=== PATIENT | female | born 1960 | race Caucasian/White ===

== ENCOUNTER 2018-01-03 00:09 | Day surgery (SDC) | payer OTHER, BC ==
[~2018-01-03 00:09] MED LIST: HYDACE5 PO; LYNPARZA150 MG PO; MULTI VITAMIN1 EACH PO; OMEPRAZOLE MAGN20 MG PO
[2018-01-03 18:05] LABS: BASOPHILS ABSOLUTE AUTO 0.04 K/mm3 (0.00-0.23); BASOPHILS PERCENT AUTO 0 % (0-2); EOSINOPHILS ABSOLUTE AUTO 0.12 K/mm3 (0.00-0.68); EOSINOPHILS PERCENT AUTO 1 % (0-6); Hematocrit 34.5 % (33.0-51.0); Hemoglobin 11.7 g/dL (11.5-16.0); IMMATURE GRAN ABSOLUTE AUTO 0.05 K/mm3 (0.00-0.10); IMMATURE GRAN PERCENT AUTO 1 % (0-1); LYMPHOCYTES ABSOLUTE AUTO 1.12 K/mm3 (0.84-5.20); LYMPHOCYTES PERCENT AUTO 12 % (21-46); MONOCYTES ABSOLUTE AUTO 0.71 K/mm3 (0.16-1.47); MONOCYTES PERCENT AUTO 7 % (4-13); Mean Corpuscular HGB 29.5 pg (26.0-34.0); Mean Corpuscular HGB Conc 33.9 g/dL (31.5-36.5); Mean Corpuscular Volume 87 fL (80-100); Mean Platelet Volume 9.8 fL (9.1-12.4); NEUTROPHILS ABSOLUTE AUTO 7.58 K/mm3 (1.96-9.15); NEUTROPHILS PERCENT AUTO 79 % (41-73); Platelet Count 224 K/mm3 (150-400); RDW Coefficient Variation 15.4 % (11.7-14.2); RDW Standard Deviation 48.9 fL (35.1-46.3); Red Blood Cell Count 3.96 M/mm3 (3.80-5.20); White Blood Cell Count 9.62 K/mm3 (4.00-11.30)
[2018-01-03 18:45] LABS: Alanine Aminotransfer (ALT/SGP 35 U/L (12-78); Albumin, Blood 3.6 g/dL (3.4-5.0); Alk Phos 94 U/L (50-136); Anion Gap 10 mmol/L (6-16); Aspartate Aminotrans (AST/SGOT 16 U/L (12-37); Bilirubin, Total 0.7 mg/dL (0.1-1.0); Blood Urea Nitrogen 13 mg/dL (8-24); Bun/Creatinine Ratio 18.5 (12.0-20.0); CO2, Blood 25 mmol/L (21-32); Calcium, Blood 8.9 mg/dL (8.5-10.1); Chloride, Blood 105 mmol/L (98-108); Globulin, Blood 3.6 g/dL (2.2-4.0); Glomerular Filtration Rate >60 (60-); Glucose, Blood 98 mg/dL (70-99); Potassium, Blood 3.7 mmol/L (3.5-5.5); Sodium, Blood 140 mmol/L (136-145); Total Protein, Blood 7.2 g/dL (6.4-8.2)
== END 2018-01-03 17:22 | disposition home or self-care (01) ==
LOC: ATC 00:09
PROVIDERS: Obstetrics & Gynecology Gynecologic Oncology
DX: C56.9 Malignant neoplasm of unspecified ovary (principal)
CPT/HCPCS: 36416; 36591; 80053; 85025; 86304; 96523; J1642

== ENCOUNTER 2018-05-14 00:07 | Day surgery (SDC) | payer OTHER, BC ==
[2018-05-14 17:16] LABS: BASOPHILS ABSOLUTE AUTO 0.03 K/mm3 (0.00-0.23); BASOPHILS PERCENT AUTO 0 % (0-2); EOSINOPHILS ABSOLUTE AUTO 0.12 K/mm3 (0.00-0.68); EOSINOPHILS PERCENT AUTO 1 % (0-6); Hemoglobin 11.9 g/dL (11.5-16.0); IMMATURE GRAN ABSOLUTE AUTO 0.05 K/mm3 (0.00-0.10); IMMATURE GRAN PERCENT AUTO 1 % (0-1); LYMPHOCYTES ABSOLUTE AUTO 1.08 K/mm3 (0.84-5.20); LYMPHOCYTES PERCENT AUTO 11 % (21-46); MONOCYTES ABSOLUTE AUTO 0.71 K/mm3 (0.16-1.47); MONOCYTES PERCENT AUTO 7 % (4-13); Mean Corpuscular HGB 29.2 pg (26.0-34.0); Mean Corpuscular HGB Conc 33.1 g/dL (31.5-36.5); Mean Corpuscular Volume 89 fL (80-100); NEUTROPHILS ABSOLUTE AUTO 7.65 K/mm3 (1.96-9.15); NEUTROPHILS PERCENT AUTO 79 % (41-73); Platelet Count 210 K/mm3 (150-400); RDW Coefficient Variation 14.8 % (11.7-14.2); RDW Standard Deviation 47.6 fL (35.1-46.3); Red Blood Cell Count 4.07 M/mm3 (3.80-5.20); White Blood Cell Count 9.64 K/mm3 (4.00-11.30)
[2018-05-14 17:42] LABS: Alanine Aminotransfer (ALT/SGP 38 U/L (12-78); Albumin, Blood 3.5 g/dL (3.4-5.0); Albumin/Globulin Ratio 0.9 (0.8-1.8); Alk Phos 95 U/L (50-136); Anion Gap 6 mmol/L (6-16); Aspartate Aminotrans (AST/SGOT 15 U/L (12-37); Bilirubin, Total 0.6 mg/dL (0.1-1.0); Blood Urea Nitrogen 11 mg/dL (8-24); Bun/Creatinine Ratio 11.8 (12.0-20.0); CO2, Blood 27 mmol/L (21-32); Calcium, Blood 8.5 mg/dL (8.5-10.1); Chloride, Blood 106 mmol/L (98-108); Creatinine, Blood 0.93 mg/dL (0.40-1.00); Globulin, Blood 3.8 g/dL (2.2-4.0); Glomerular Filtration Rate >60 (60-); Glucose, Blood 142 mg/dL (70-99); Potassium, Blood 3.6 mmol/L (3.5-5.5); Sodium, Blood 139 mmol/L (136-145); Total Protein, Blood 7.3 g/dL (6.4-8.2)
== END 2018-05-14 16:50 | disposition home or self-care (01) ==
LOC: ATC 00:07
PROVIDERS: Obstetrics & Gynecology Gynecologic Oncology
DX: C56.9 Malignant neoplasm of unspecified ovary (principal); Z51.81 Encounter for therapeutic drug level monitoring
CPT/HCPCS: 36591; 80053; 85025; 86304; J1642

== ENCOUNTER 2018-06-27 05:22 | Day surgery (SDC) | payer OTHER, BC ==
[2018-06-27 17:17] LABS: BASOPHILS ABSOLUTE AUTO 0.04 K/mm3 (0.00-0.23); BASOPHILS PERCENT AUTO 0 % (0-2); EOSINOPHILS ABSOLUTE AUTO 0.15 K/mm3 (0.00-0.68); EOSINOPHILS PERCENT AUTO 2 % (0-6); Hematocrit 35.8 % (33.0-51.0); IMMATURE GRAN ABSOLUTE AUTO 0.05 K/mm3 (0.00-0.10); IMMATURE GRAN PERCENT AUTO 1 % (0-1); LYMPHOCYTES ABSOLUTE AUTO 1.02 K/mm3 (0.84-5.20); LYMPHOCYTES PERCENT AUTO 10 % (21-46); MONOCYTES ABSOLUTE AUTO 0.67 K/mm3 (0.16-1.47); MONOCYTES PERCENT AUTO 7 % (4-13); Mean Corpuscular HGB 29.5 pg (26.0-34.0); Mean Corpuscular HGB Conc 33.5 g/dL (31.5-36.5); Mean Corpuscular Volume 88 fL (80-100); Mean Platelet Volume 8.9 fL (9.1-12.4); NEUTROPHILS ABSOLUTE AUTO 8.29 K/mm3 (1.96-9.15); NEUTROPHILS PERCENT AUTO 81 % (41-73); Platelet Count 220 K/mm3 (150-400); RDW Standard Deviation 48.9 fL (35.1-46.3); Red Blood Cell Count 4.07 M/mm3 (3.80-5.20); White Blood Cell Count 10.22 K/mm3 (4.00-11.30)
[2018-06-27 17:35] LABS: Alanine Aminotransfer (ALT/SGP 35 U/L (12-78); Albumin, Blood 3.4 g/dL (3.4-5.0); Albumin/Globulin Ratio 0.9 (0.8-1.8); Alk Phos 95 U/L (50-136); Anion Gap 5 mmol/L (6-16); Aspartate Aminotrans (AST/SGOT 16 U/L (12-37); Bilirubin, Total 0.7 mg/dL (0.1-1.0); Blood Urea Nitrogen 12 mg/dL (8-24); Bun/Creatinine Ratio 20.7 (12.0-20.0); CO2, Blood 28 mmol/L (21-32); Calcium, Blood 8.8 mg/dL (8.5-10.1); Chloride, Blood 104 mmol/L (98-108); Creatinine, Blood 0.58 mg/dL (0.40-1.00); Globulin, Blood 3.7 g/dL (2.2-4.0); Glomerular Filtration Rate >60 (60-); Glucose, Blood 139 mg/dL (70-99); Potassium, Blood 3.6 mmol/L (3.5-5.5); Sodium, Blood 137 mmol/L (136-145); Total Protein, Blood 7.1 g/dL (6.4-8.2)
== END 2018-06-27 17:00 | disposition home or self-care (01) ==
LOC: ATC 05:22
PROVIDERS: Obstetrics & Gynecology Gynecologic Oncology
DX: C56.9 Malignant neoplasm of unspecified ovary (principal); Z51.81 Encounter for therapeutic drug level monitoring
CPT/HCPCS: 36591; 80053; 85025; 86304; J1642

== ENCOUNTER 2018-10-15 03:06 | Day surgery (SDC) | payer OTHER, BC ==
[2018-10-15 17:07] LABS: BASOPHILS ABSOLUTE AUTO 0.03 K/mm3 (0.00-0.23); BASOPHILS PERCENT AUTO 0 % (0-2); EOSINOPHILS ABSOLUTE AUTO 0.11 K/mm3 (0.00-0.68); EOSINOPHILS PERCENT AUTO 1 % (0-6); Hematocrit 34.4 % (33.0-51.0); Hemoglobin 11.5 g/dL (11.5-16.0); IMMATURE GRAN ABSOLUTE AUTO 0.04 K/mm3 (0.00-0.10); IMMATURE GRAN PERCENT AUTO 0 % (0-1); LYMPHOCYTES ABSOLUTE AUTO 0.94 K/mm3 (0.84-5.20); LYMPHOCYTES PERCENT AUTO 10 % (21-46); MONOCYTES PERCENT AUTO 7 % (4-13); Mean Corpuscular HGB 29.7 pg (26.0-34.0); Mean Corpuscular HGB Conc 33.4 g/dL (31.5-36.5); Mean Corpuscular Volume 89 fL (80-100); Mean Platelet Volume 8.8 fL (9.1-12.4); NEUTROPHILS ABSOLUTE AUTO 8.06 K/mm3 (1.96-9.15); NEUTROPHILS PERCENT AUTO 82 % (41-73); Platelet Count 208 K/mm3 (150-400); RDW Coefficient Variation 17.1 % (11.7-14.2); RDW Standard Deviation 55.3 fL (35.1-46.3); Red Blood Cell Count 3.87 M/mm3 (3.80-5.20); White Blood Cell Count 9.88 K/mm3 (4.00-11.30)
[2018-10-15 17:35] LABS: Alanine Aminotransfer (ALT/SGP 40 U/L (12-78); Albumin, Blood 3.6 g/dL (3.4-5.0); Alk Phos 95 U/L (50-136); Anion Gap 6 mmol/L (6-16); Aspartate Aminotrans (AST/SGOT 18 U/L (12-37); Bilirubin, Total 0.9 mg/dL (0.1-1.0); Blood Urea Nitrogen 12 mg/dL (8-24); Bun/Creatinine Ratio 15.9 (12.0-20.0); CO2, Blood 28 mmol/L (21-32); Calcium, Blood 8.9 mg/dL (8.5-10.1); Chloride, Blood 109 mmol/L (98-108); Creatinine, Blood 0.75 mg/dL (0.40-1.00); Globulin, Blood 3.5 g/dL (2.2-4.0); Glomerular Filtration Rate >60 (60-); Glucose, Blood 136 mg/dL (70-99); Potassium, Blood 3.6 mmol/L (3.5-5.5); Sodium, Blood 143 mmol/L (136-145); Total Protein, Blood 7.1 g/dL (6.4-8.2)
== END 2018-10-15 17:00 | disposition home or self-care (01) ==
LOC: ATC 03:06
PROVIDERS: Obstetrics & Gynecology Gynecologic Oncology
DX: C56.9 Malignant neoplasm of unspecified ovary (principal); Z79.899 Other long term (current) drug therapy; Z88.5 Allergy status to narcotic agent; Z88.2 Allergy status to sulfonamides; Z88.8 Allergy status to other drugs, medicaments and biological substances
CPT/HCPCS: 36591; 80053; 85025; 86304; J1642

== ENCOUNTER 2019-01-02 00:34 | Day surgery (SDC) | payer OTHER, BC | END 2019-01-02 11:25 | disposition home or self-care (01) | LOC: ATC 00:34 | DX: C56.9 Malignant neoplasm of unspecified ovary (principal); Z79.899 Other long term (current) drug therapy; Z88.5 Allergy status to narcotic agent; Z88.2 Allergy status to sulfonamides | CPT/HCPCS: 96523; J1642 ==

== ENCOUNTER → 2021-11-30 | Outpatient (CLI) | payer OTHER, BC ==
[2021-11-30 09:45] LABS: Protein, Urine Quantitative 162.6 mg/dL (0.0-11.9)
== END | disposition home or self-care (01) ==
LOC: LAB SHORT 06:00 → LAB 06:00
DX: C56.9 Malignant neoplasm of unspecified ovary (principal); C48.2 Malignant neoplasm of peritoneum, unspecified
CPT/HCPCS: 84156

== ENCOUNTER → 2021-12-27 | Outpatient (CLI) | payer OTHER, BC ==
[2021-12-28 11:28] LABS: Protein, Urine Quantitative 44.4 mg/dL (0.0-11.9)
== END | disposition home or self-care (01) ==
LOC: LAB 09:40 → LAB SHORT 09:40 → LAB FUT 12-12 07:30
PROVIDERS: Internal Medicine Hematology & Oncology
DX: C56.9 Malignant neoplasm of unspecified ovary (principal); C48.2 Malignant neoplasm of peritoneum, unspecified
CPT/HCPCS: 81050; 84156

== ENCOUNTER → 2022-07-24 | Outpatient (CLI) | payer OTHER, BC ==
[2022-07-24 17:12] LABS: Protein, Urine Quantitative 83.3 mg/dL (0.0-11.9)
== END ==
LOC: LAB SHORT 05:30 → LAB FUT 07-10 13:10 → EDSTATUS 07-10 13:10
PROVIDERS: Internal Medicine Hematology & Oncology
DX: C56.9 Malignant neoplasm of unspecified ovary (principal); C48.2 Malignant neoplasm of peritoneum, unspecified
CPT/HCPCS: 81050; 84156

== ENCOUNTER → 2022-11-06 | Outpatient (CLI) | payer OTHER, BC ==
[2022-11-06 16:56] LABS: Protein, Urine Quantitative 88.2 mg/dL (0.0-11.9)
== END | disposition home or self-care (01) ==
LOC: LAB SHORT 12:15
PROVIDERS: Internal Medicine Hematology & Oncology
DX: C56.9 Malignant neoplasm of unspecified ovary (principal); C48.2 Malignant neoplasm of peritoneum, unspecified
CPT/HCPCS: 81050; 84156

== ENCOUNTER → 2022-11-17 | Outpatient (CLI) | payer OTHER, BC | END | disposition home or self-care (01) | LOC: LAB 18:16 → LAB SHORT 18:16 | DX: M79.672 Pain in left foot (principal) | CPT/HCPCS: 84550 ==

== ENCOUNTER 2023-04-18 04:42 | Day surgery (SDC) | payer OTHER, BC ==
[2023-04-18 13:58] VITALS: BP 145/55
[2023-04-18 14:14] VITALS: BP 143/54
[2023-04-18] MEDS ORDERED: NORVASC5 MG PO (14:25)
[2023-04-18] MEDS ORDERED: FOLI1 PO (14:25)
[2023-04-18] MEDS ORDERED: DOXORUBICIN2 MG/1 ML IV (14:26)
[2023-04-18] MEDS ORDERED: Prinivil10 MG PO (14:27)
[2023-04-18] MEDS ORDERED: DECADRON4 M1 PO (14:27)
[2023-04-18] MEDS ORDERED: ONDA4ODT MM (14:28)
[2023-04-18] MEDS ORDERED: PROC5 PO (14:28)
[2023-04-18 15:18] VITALS: BP 143/76
[2023-04-18 15:43] VITALS: BP 145/66
[2023-04-18 16:04] VITALS: BP 151/69
[2023-04-18 17:22] VITALS: BP 154/75
== END 2023-04-18 17:29 | disposition home or self-care (01) ==
LOC: ATC 04:42
DX: C56.9 Malignant neoplasm of unspecified ovary (principal); Z88.5 Allergy status to narcotic agent; Z88.2 Allergy status to sulfonamides
CPT/HCPCS: 36415; 36430; 86850; 86900; 86901; 86920; J1642; J7050; P9016

== ENCOUNTER → 2023-05-16 | Outpatient (CLI) | payer OTHER, BC ==
[~2023-05-16] MED LIST changes: +DECADRON4 M1 PO; +DOXORUBICIN2 MG/1 ML IV; +FOLI1 PO; +NORVASC5 MG PO; +ONDA4ODT MM; +PROC5 PO; +Prinivil10 MG PO
[2023-05-16 19:06] LABS: BASOPHILS ABSOLUTE AUTO 0.02 K/mm3 (0.00-0.23); BASOPHILS PERCENT AUTO 0 % (0-2); EOSINOPHILS ABSOLUTE AUTO 0.01 K/mm3 (0.00-0.68); EOSINOPHILS PERCENT AUTO 0 % (0-6); Hematocrit 27.1 % (33.0-51.0); Hemoglobin 8.9 g/dL (11.5-16.0); IMMATURE GRAN ABSOLUTE AUTO 0.16 K/mm3 (0.00-0.10); IMMATURE GRAN PERCENT AUTO 2 % (0-1); LYMPHOCYTES PERCENT AUTO 6 % (21-46); MONOCYTES ABSOLUTE AUTO 1.51 K/mm3 (0.16-1.47); MONOCYTES PERCENT AUTO 14 % (4-13); Mean Corpuscular HGB 29.9 pg (26.0-34.0); Mean Corpuscular HGB Conc 32.8 g/dL (31.5-36.5); Mean Corpuscular Volume 91 fL (80-100); Mean Platelet Volume 9.1 fL (9.1-12.4); NEUTROPHILS ABSOLUTE AUTO 8.54 K/mm3 (1.96-9.15); NEUTROPHILS PERCENT AUTO 79 % (41-73); Platelet Count 303 K/mm3 (150-400); RDW Coefficient Variation 16.9 % (11.7-14.2); RDW Standard Deviation 53.8 fL (35.1-46.3); Red Blood Cell Count 2.98 M/mm3 (3.80-5.20); White Blood Cell Count 10.84 K/mm3 (4.00-11.30)
== END ==
LOC: LAB SHORT 18:58 → LAB 18:58
PROVIDERS: Physician Assistant Medical
DX: R10.84 Generalized abdominal pain (principal)
CPT/HCPCS: 85025

== ENCOUNTER 2023-05-22 17:21 | Emergency (ER) | payer OTHER, BC ==
[~2023-05-22] VITALS: Ht 154.9 cm; Wt 86.2 kg
[2023-05-22 18:40] LABS: BASOPHILS ABSOLUTE AUTO 0.05 K/mm3 (0.00-0.23); BASOPHILS PERCENT AUTO 0 % (0-2); EOSINOPHILS ABSOLUTE AUTO 0.01 K/mm3 (0.00-0.68); EOSINOPHILS PERCENT AUTO 0 % (0-6); Hematocrit 24.8 % (33.0-51.0); Hemoglobin 8.3 g/dL (11.5-16.0); IMMATURE GRAN ABSOLUTE AUTO 0.33 K/mm3 (0.00-0.10); IMMATURE GRAN PERCENT AUTO 3 % (0-1); LYMPHOCYTES ABSOLUTE AUTO 0.71 K/mm3 (0.84-5.20); LYMPHOCYTES PERCENT AUTO 6 % (21-46); MONOCYTES ABSOLUTE AUTO 1.44 K/mm3 (0.16-1.47); MONOCYTES PERCENT AUTO 12 % (4-13); Mean Corpuscular HGB 29.9 pg (26.0-34.0); Mean Corpuscular HGB Conc 33.5 g/dL (31.5-36.5); Mean Corpuscular Volume 89 fL (80-100); NEUTROPHILS PERCENT AUTO 80 % (41-73); Platelet Count 235 K/mm3 (150-400); RDW Coefficient Variation 17.2 % (11.7-14.2); RDW Standard Deviation 52.9 fL (35.1-46.3); Red Blood Cell Count 2.78 M/mm3 (3.80-5.20); White Blood Cell Count 12.44 K/mm3 (4.00-11.30)
[2023-05-22 19:08] LABS: Albumin, Blood 1.8 g/dL (3.4-5.0); Albumin/Globulin Ratio 0.3 (0.8-1.8); Bilirubin, Total 0.8 mg/dL (0.1-1.0); Bun/Creatinine Ratio 13.2 (12.0-20.0); Creatinine, Blood 0.84 mg/dL (0.40-1.00); Potassium, Blood 2.8 mmol/L (3.5-5.5); Total Protein, Blood 7.8 g/dL (6.4-8.2)
[2023-05-22 20:44] LABS: Source, Urine Clean Catch
[2023-05-22 20:48] LABS: Appearance, Urine Hazy (Clear); Blood, Urine 5+ (Neg); Color, Urine Amber (P-Yellow); Glucose Qualitative, Urine Neg (Neg); Ketones, Urine 3+ (Neg); Leukocyte Esterase, Urine 2+ (Neg); Nitrite, Urine Neg (Neg); Protein, Urine 4+ (Neg); Urobilinogen, Urine 2+ (Normal)
[2023-05-22 20:58] LABS: Bilirubin, Urine 1+ (Neg)
[2023-05-22 21:00] LABS: Squamous Epithelial Cells Few /hpf (Few); White Blood Cells, Urine 25-50 /hpf (0-5)
[2023-05-22 21:01] LABS: Bacteria Many /hpf; Granular Casts 0-2 /lpf (0); Hyaline Casts 0-2 /lpf (0-2)
[2023-05-22 22:27] LABS: Magnesium, Blood 1.6 mg/dL (1.6-2.4)
[2023-05-23] MEDS ORDERED: PROM25 PO (00:13)
[2023-05-23 00:20] VITALS: BP 152/73
[2023-05-23] MEDS ORDERED: CEPHALEXIN125 MG/5 M PO (00:45)
[2023-05-23] MEDS ORDERED: Keflex500 MG PO (00:46)
== END 2023-05-23 00:44 | disposition home or self-care (01) ==
LOC: ER 17:21
PROVIDERS: Emergency Medicine
DX: E86.0 Dehydration (principal); E87.6 Hypokalemia; N39.0 Urinary tract infection, site not specified; I80.02 Phlebitis and thrombophlebitis of superficial vessels of left lower extremity; C56.9 Malignant neoplasm of unspecified ovary; R11.2 Nausea with vomiting, unspecified; Z88.2 Allergy status to sulfonamides; Z88.5 Allergy status to narcotic agent; Z79.899 Other long term (current) drug therapy; Z79.52 Long term (current) use of systemic steroids
CPT/HCPCS: 80053; 81001; 83735; 85025; 87077; 87086; 87186; 93971; 96365; 96375; 96376; 99284-25; A9270; J1642; J2405; J3480; J7030

== ENCOUNTER 2023-06-03 14:59 | Inpatient (IN) | payer OTHER, BC ==
[~2023-06-03] VITALS: Ht 157.5 cm; Wt 82.9 kg
[~2023-06-03 14:59] MED LIST changes: +CEPHALEXIN125 MG/5 M PO; +COMPAZINE10 MG PO; +Keflex500 MG PO; -MULTI VITAMIN1 EACH PO; +MULVITA PO; -ONDA4ODT MM; +ONDA8 PO; -PROC5 PO; +PROM25 PO
[2023-06-03] MEDS ORDERED: Ondansetron HCl 2 MG / ML 2ML Vial IV ONE (15:45)
[2023-06-03 16:04] LABS: BASOPHILS ABSOLUTE AUTO 0.05 K/mm3 (0.00-0.23); BASOPHILS PERCENT AUTO 0 % (0-2); EOSINOPHILS ABSOLUTE AUTO 0.03 K/mm3 (0.00-0.68); EOSINOPHILS PERCENT AUTO 0 % (0-6); Hematocrit 20.6 % (33.0-51.0); Hemoglobin 6.8 g/dL (11.5-16.0); IMMATURE GRAN ABSOLUTE AUTO 0.12 K/mm3 (0.00-0.10); IMMATURE GRAN PERCENT AUTO 1 % (0-1); LYMPHOCYTES ABSOLUTE AUTO 1.13 K/mm3 (0.84-5.20); LYMPHOCYTES PERCENT AUTO 6 % (21-46); MONOCYTES ABSOLUTE AUTO 1.36 K/mm3 (0.16-1.47); MONOCYTES PERCENT AUTO 8 % (4-13); Mean Corpuscular HGB 29.6 pg (26.0-34.0); Mean Corpuscular Volume 90 fL (80-100); Mean Platelet Volume 9.3 fL (9.1-12.4); NEUTROPHILS ABSOLUTE AUTO 14.86 K/mm3 (1.96-9.15); NEUTROPHILS PERCENT AUTO 85 % (41-73); Platelet Count 287 K/mm3 (150-400); RDW Coefficient Variation 19.1 % (11.7-14.2); RDW Standard Deviation 59.5 fL (35.1-46.3); White Blood Cell Count 17.55 K/mm3 (4.00-11.30)
[2023-06-03 16:32] LABS: Magnesium, Blood 1.3 mg/dL (1.6-2.4)
[2023-06-03 16:34] LABS: Albumin, Blood 1.8 g/dL (3.4-5.0); Albumin/Globulin Ratio 0.3 (0.8-1.8); Bilirubin, Total 1.5 mg/dL (0.1-1.0); Bun/Creatinine Ratio 15.7 (12.0-20.0); Calcium, Blood 8.7 mg/dL (8.5-10.1); Creatinine, Blood 0.76 mg/dL (0.40-1.00); Globulin, Blood 6.2 g/dL (2.2-4.0); Potassium, Blood 2.3 mmol/L (3.5-5.5)
[2023-06-03] MEDS ORDERED: Potassium Chloride 40 MEQ in NS 250 ML IV ONE (16:40)
[2023-06-03] MEDS ORDERED: NS 1,000 ML IV SCH ×2 (16:40→20:35)
[2023-06-03 18:33] LABS: Source, Urine Clean Catch
[2023-06-03 18:36] LABS: Appearance, Urine Cloudy (Clear); Blood, Urine 5+ (Neg); Color, Urine Amber (P-Yellow); Glucose Qualitative, Urine Neg (Neg); Ketones, Urine 3+ (Neg); Leukocyte Esterase, Urine 3+ (Neg); Nitrite, Urine Neg (Neg); Protein, Urine 3+ (Neg); Urobilinogen, Urine 2+ (Normal)
[2023-06-03 19:07] LABS: Bilirubin, Urine 2+ (Neg)
[2023-06-03 19:11] LABS: Squamous Epithelial Cells Many /hpf (Few); White Blood Cells, Urine 50-100 /hpf (0-5)
[2023-06-03 19:12] LABS: Amorphous Light (0-Heavy); Bacteria Many /hpf; Granular Casts 0-2 /lpf (0); Mucus Light (0-Heavy); Renal Epithelial Rare /hpf (0-Rare); Transitional Epithelial Cells Few /hpf (0-Rare); WBC Cast 0-2 /lpf (0)
[2023-06-03 20:13] LABS: Source, Urine Straight Cath
[2023-06-03] MEDS ORDERED: CefTRIAXone Sodium 1,000 MG in NS 50 ML IV ONE (20:15)
[2023-06-03 20:16] LABS: Appearance, Urine Hazy (Clear); Blood, Urine 5+ (Neg); Color, Urine Amber (P-Yellow); Glucose Qualitative, Urine Neg (Neg); Ketones, Urine 3+ (Neg); Leukocyte Esterase, Urine 2+ (Neg); Nitrite, Urine Neg (Neg); Protein, Urine 3+ (Neg); Specific Gravity, Urine 1.015 (1.003-1.022); Urobilinogen, Urine 2+ (Normal)
[2023-06-03 20:19] LABS: Adenovirus Not Detected (NOT DETECT); Bordetella pertussis Not Detected (NOT DETECT); Chlamydophila pneumoniae Not Detected (NOT DETECT); Coronavirus 229E Not Detected (NOT DETECT); Coronavirus HKU1 Not Detected (NOT DETECT); Coronavirus NL63 Not Detected (NOT DETECT); Coronavirus OC43 Not Detected (NOT DETECT); Human Metapneumovirus Not Detected (NOT DETECT); Human Rhinovirus/Enterovirus Not Detected (NOT DETECT); Influenza A/2009-H1 Not Detected (NOT DETECT); Influenza A/H1 Not Detected (NOT DETECT); Influenza A/H3 Not Detected (NOT DETECT); Influenza B Not Detected (NOT DETECT); Mycoplasma pneumoniae Not Detected (NOT DETECT); Parainfluenza Virus 1 Not Detected (NOT DETECT); Parainfluenza Virus 2 Not Detected (NOT DETECT); Parainfluenza Virus 3 Not Detected (NOT DETECT); Parainfluenza Virus 4 Not Detected (NOT DETECT); Respiratory Syncytial Virus Not Detected (NOT DETECT); SARS-Cov-2 (COVID-19), BioFire Not Detected (NOT DETECT)
[2023-06-03 20:22] LABS: Bilirubin, Urine 1+ (Neg)
[2023-06-03 20:31] LABS: Bacteria Mod /hpf; Granular Casts 0-2 /lpf (0); Squamous Epithelial Cells Rare /hpf (Few)
[2023-06-03] MEDS ORDERED: Ondansetron HCl 2 MG / ML 2ML Vial IV PRN (21:40)
[2023-06-03] MEDS ORDERED: Acetaminophen 325 MG TABLET PO PRN (21:40)
[2023-06-03] MEDS ORDERED: FLU VACC QS2023-24(6MOS UP)/PF 60 MCG/0.5 ML SYRINGE IM ONE (21:40)
[2023-06-03 23:29] VITALS: BP 132/64
[2023-06-04] VITALS (8 sets, daily range): BP systolic 138–150; BP diastolic 62–76
[2023-06-04] MEDS ORDERED: NS 500 ML IV SCH (00:10)
--- NOTE | 2023-06-04 04:30 | NUR ---
SHIFT SUMMARY; PATIENT ARRIVED TO MED FLOOR AFTER MIDNIGHT. SHE IS AO X 4. DENIES ANY PAIN OR DISCOMFORT OTHER THAN NAUSESA. NO EMESIS NOTED ON ARRIVAL OR SINCE COMING TO MEDICAL FLOOR. ONE UNIT PRBC'S IS TRANSFUSED NO REACTION IS NOTED. VITAL SIGNS REMAIN STABLE. PER REPORT PATIENT HAS BEEN RECEIVING CHEMO OVER THE PAST FEW WEEKS. PATIENT STATES SHE HAS BEEN RECEIVING TREATMENT FOR 8 YEARS AND RECENTLY STARTED BACK UP AGAIN. SHE HAS A MEDIPORT IN PLACE THAT IS NOT ACCESSED TO MAINTAIN THE INTEGRITY OF IT FOR HER CANCER TREATMENTS. PATIENT SAYS SHE IS FEELING BETTER AND NO NAUSEA MEDICINE IS NEEDED DURING THE REST OF THE NOC SHIFT. WILL REMAIN AVAILABLE FOR THIS PATIENT FOR ANY WANTS OR NEEDS THAT COME UP PRIOR TO SHIFT CHANGE AND REPORT TO DAY SHIFT RN.
[2023-06-04 05:48] LABS: BASOPHILS ABSOLUTE AUTO 0.04 K/mm3 (0.00-0.23); BASOPHILS PERCENT AUTO 0 % (0-2); EOSINOPHILS ABSOLUTE AUTO 0.06 K/mm3 (0.00-0.68); EOSINOPHILS PERCENT AUTO 1 % (0-6); Hematocrit 22.1 % (33.0-51.0); Hemoglobin 7.6 g/dL (11.5-16.0); IMMATURE GRAN ABSOLUTE AUTO 0.09 K/mm3 (0.00-0.10); IMMATURE GRAN PERCENT AUTO 1 % (0-1); LYMPHOCYTES ABSOLUTE AUTO 0.73 K/mm3 (0.84-5.20); LYMPHOCYTES PERCENT AUTO 7 % (21-46); MONOCYTES PERCENT AUTO 10 % (4-13); Mean Corpuscular HGB 30.4 pg (26.0-34.0); Mean Corpuscular HGB Conc 34.4 g/dL (31.5-36.5); Mean Corpuscular Volume 88 fL (80-100); Mean Platelet Volume 9.3 fL (9.1-12.4); NEUTROPHILS ABSOLUTE AUTO 9.25 K/mm3 (1.96-9.15); NEUTROPHILS PERCENT AUTO 82 % (41-73); Platelet Count 153 K/mm3 (150-400); RDW Coefficient Variation 17.5 % (11.7-14.2); RDW Standard Deviation 53.6 fL (35.1-46.3); White Blood Cell Count 11.27 K/mm3 (4.00-11.30)
[2023-06-04 06:15] LABS: Albumin, Blood 1.6 g/dL (3.4-5.0); Albumin/Globulin Ratio 0.3 (0.8-1.8); Bilirubin, Total 1.2 mg/dL (0.1-1.0); Bun/Creatinine Ratio 14.2 (12.0-20.0); Calcium, Blood 8.1 mg/dL (8.5-10.1); Creatinine, Blood 0.77 mg/dL (0.40-1.00); Globulin, Blood 5.3 g/dL (2.2-4.0); Potassium, Blood 2.5 mmol/L (3.5-5.5); Total Protein, Blood 6.9 g/dL (6.4-8.2)
[2023-06-04] MEDS ORDERED: Mag Sulfate 1 GM/D5% 100ML 100 ML IV STA (07:28)
[2023-06-04] MEDS ORDERED: Potassium Chl 20MEQ/Water100ML 100 ML IV SCH (07:30)
[2023-06-04] MEDS ORDERED: Prochlorperazine Edisylate 10 mg Vial IV PRN (08:10)
[2023-06-04] MEDS ORDERED: Pantoprazole Sodium 40 MG Tab PO SCH (09:50)
[2023-06-04] MEDS ORDERED: CefTRIAXone Sodium 1,000 MG in NS 50 ML IV SCH (12:00)
[2023-06-04] MEDS ORDERED: Enoxaparin 100 MG/ML 1ML SYR SC SCH (13:00)
[2023-06-04] MEDS ORDERED: Enoxaparin 120 MG/0.8 ML SYR SC SCH (13:00)
--- NOTE | 2023-06-04 16:51 | NUR ---
Spiritual care visit conducted. Patient is lying in bed and alert. Her spouse, Jewel is bedside. They tell me about the 8 yr soliz the patient has had with cancer and the many ups and downs they ave faced. They talk about the love they have for each other and the strength they find in each other. They also speak of their mosque ([employer] [facility]) where they receive much support and inspiration due to the couples strong Chriatian beliefs. They share about their family their solid connections. Patient shares about the deep exhaustion and times of mental darkness in the physically challenging days. Patient has exceptional coping skills and resources that assist in those days. I provide therapeutic listening, recitation of scripture, gentle outreach counselor and prayer. Patient and Jewel responded well and stated that they felt better from the spiritual care visit and that their sandee was encourged.
--- NOTE | 2023-06-04 17:31 | NUR ---
SUMMARY PT SITTING UP IN BED VISITING WITH FRIENDS AND FAMILY, PT HAS BEEN PLEASANT AND COOPERATIVE WITH CARE T/O THE DAY, UP WITH MIN ASSIST, PT HAD AN EPISODE OF NAUSEA AND RETCHING FIRST THING IN THE MORNING, MED PER EMAR WITH GOOD RESULTS, PT DENIES ANY PAIN OR SOB, IV WENT BAD, DIFFICULT IV STICK, OBTAINED ORDERS TO ACCESS MEDIPORT, PT JOJO WELL, VSS, WILL CONT TO MONITOR
[2023-06-05 02:59] VITALS: BP 141/68
--- NOTE | 2023-06-05 05:00 | NUR ---
SHIFT SUMMARY ADMITTED FOR NAUSEA AND VOMITING. FULL CODE. FOUND TO HAVE A UTI. SHE WAS HYPOKALEMIC. 1 U PRBC'S GIVEN. IV ANTIB RX ARE SCHEDULED. SHE HAS A HX OF OVARIAN CANCER, LAST CHEMO 03/2023. ON RA. HER MEDIPORT IS ACCESSED. SHE IS INDEPENDENT IN ROOM. SHE IS CONTINENT. ON REGULAR DIET. FOUND TO HAVE A CLOT IN LLE.
[2023-06-05 06:04] LABS: BASOPHILS ABSOLUTE AUTO 0.03 K/mm3 (0.00-0.23); BASOPHILS PERCENT AUTO 0 % (0-2); EOSINOPHILS ABSOLUTE AUTO 0.04 K/mm3 (0.00-0.68); EOSINOPHILS PERCENT AUTO 0 % (0-6); Hematocrit 22.7 % (33.0-51.0); Hemoglobin 7.7 g/dL (11.5-16.0); IMMATURE GRAN ABSOLUTE AUTO 0.07 K/mm3 (0.00-0.10); IMMATURE GRAN PERCENT AUTO 1 % (0-1); LYMPHOCYTES ABSOLUTE AUTO 0.64 K/mm3 (0.84-5.20); LYMPHOCYTES PERCENT AUTO 7 % (21-46); MONOCYTES ABSOLUTE AUTO 0.91 K/mm3 (0.16-1.47); MONOCYTES PERCENT AUTO 9 % (4-13); Mean Corpuscular HGB 29.7 pg (26.0-34.0); Mean Corpuscular HGB Conc 33.9 g/dL (31.5-36.5); Mean Corpuscular Volume 88 fL (80-100); Mean Platelet Volume 8.9 fL (9.1-12.4); NEUTROPHILS ABSOLUTE AUTO 8.07 K/mm3 (1.96-9.15); NEUTROPHILS PERCENT AUTO 83 % (41-73); Platelet Count 124 K/mm3 (150-400); RDW Coefficient Variation 18.1 % (11.7-14.2); Red Blood Cell Count 2.59 M/mm3 (3.80-5.20); White Blood Cell Count 9.76 K/mm3 (4.00-11.30)
[2023-06-05 06:19] LABS: Creatinine, Blood 0.79 mg/dL (0.40-1.00); Potassium, Blood 2.9 mmol/L (3.5-5.5)
[2023-06-05] MEDS ORDERED: Mag Sulfate 1 GM/D5% 100ML 100 ML IV STA (07:33)
[2023-06-05 07:35] VITALS: BP 167/82
[2023-06-05] MEDS ORDERED: Potassium Chl 20MEQ/Water100ML 100 ML IV SCH (07:35)
[2023-06-05] MEDS ORDERED: NS 50 ML IV ONE (07:35)
[2023-06-05] MEDS ORDERED: Polyethylene Glycol 3350 17 gm PO PRN (13:00)
[2023-06-05] MEDS ORDERED: Sennosides 8.6 MG Tab PO SCH (13:00)
[2023-06-05 15:28] VITALS: BP 144/73
--- NOTE | 2023-06-05 17:20 | NUR ---
SHIFT SUMMARY PT RESTING QUIETLY AT START OF SHIFT. WOKE EASILY FOR SHIFT REPORT. PT ADMITTED FOR N/V RELATED TO RECENT CHEMO TX. PT IMPROVING EACH DAY. MEDICATED X1 FOR MILD NAUSEA BEFORE BREAKFAST. PT REPORTING IT EFFECTIVE WITH NO FURTHER COMPLAINTS. PT UP INDEPENDENTLY IN AND TO B[facility]. PT REPORTED HX OF CONSTIPATION AND NO RECENT BM EARLIER TODAY. DR VERAS NOTIFIED FOR BOWEL CARE; OBTAINED AND GIVEN PER EMAR. PT UP THIS AFTERNOON TO [facility] FOR BM. MAG RIDER AND IV K+ GIVEN PER EMAR TODAY. POSSIBLE D/C TO HOME TOMORROW. PT'S TO THRU OUT THE DAY. LLE VERY SWOLLEN; D/T L ANKLE CLOT, PER SHIFT REPORT. PT RECEIVING LOVENOX. VERY PLEASANT AND CO-OP WITH CARE. DENIED FURTHER NEEDS AT THIS TIME. CALL LT IN REACH.
[2023-06-05] MEDS ORDERED: PANTOPRAZOLE SO40 M2 PO (19:44)
[2023-06-05 19:52] VITALS: BP 145/64
[2023-06-05] MEDS ORDERED: Docusate Sodium 100 MG Cap PO SCH (21:00)
[2023-06-06 04:00] VITALS: BP 142/77
--- NOTE | 2023-06-06 04:59 | NUR ---
SHIFT SUMMARY ADMITTED FOR N/V. FULL CODE. PLAN IS FOR DC HOME. HX: OVARIAN CANCER. LAST CHEMO IN 03/2023. UTI, HYPOKALEMIA, AND ANEMIA AT ADMISSION 1 UNIT OF PRBC'S GIVEN. INDEPENDENT. ON RA. CLOT IN LLE. MEDIPORT IS ACCESSED. NS INFUSING TKO. MX: LABS. NAUSEA/1 EMESIS THIS SHIFT. MEDICATED FOR NAUSEA.
[2023-06-06 06:35] LABS: Bun/Creatinine Ratio 13.9 (12.0-20.0); Calcium, Blood 8.5 mg/dL (8.5-10.1); Creatinine, Blood 0.72 mg/dL (0.40-1.00); Potassium, Blood 3.3 mmol/L (3.5-5.5)
[2023-06-06 07:30] LABS: BASOPHILS ABSOLUTE AUTO 0.02 K/mm3 (0.00-0.23); BASOPHILS PERCENT AUTO 0 % (0-2); EOSINOPHILS ABSOLUTE AUTO 0.03 K/mm3 (0.00-0.68); EOSINOPHILS PERCENT AUTO 0 % (0-6); Hematocrit 19.3 % (33.0-51.0); Hemoglobin 6.4 g/dL (11.5-16.0); IMMATURE GRAN ABSOLUTE AUTO 0.07 K/mm3 (0.00-0.10); IMMATURE GRAN PERCENT AUTO 1 % (0-1); LYMPHOCYTES ABSOLUTE AUTO 0.64 K/mm3 (0.84-5.20); LYMPHOCYTES PERCENT AUTO 7 % (21-46); MONOCYTES ABSOLUTE AUTO 0.98 K/mm3 (0.16-1.47); MONOCYTES PERCENT AUTO 10 % (4-13); Mean Corpuscular HGB 29.5 pg (26.0-34.0); Mean Corpuscular HGB Conc 33.2 g/dL (31.5-36.5); Mean Corpuscular Volume 89 fL (80-100); Mean Platelet Volume 9.5 fL (9.1-12.4); NEUTROPHILS ABSOLUTE AUTO 8.13 K/mm3 (1.96-9.15); NEUTROPHILS PERCENT AUTO 82 % (41-73); Platelet Count 138 K/mm3 (150-400); RDW Coefficient Variation 18.2 % (11.7-14.2); RDW Standard Deviation 57.1 fL (35.1-46.3); Red Blood Cell Count 2.17 M/mm3 (3.80-5.20); White Blood Cell Count 9.87 K/mm3 (4.00-11.30)
[2023-06-06 07:36] VITALS: BP 146/80
[2023-06-06] MEDS ORDERED: Potassium Chl 20MEQ/Water100ML 100 ML IV SCH (08:50)
[2023-06-06] MEDS ORDERED: Potassium Chloride 20 MEQ TabCR PO ONE (09:00)
[2023-06-06 11:39] VITALS: BP 150/74
[2023-06-06 16:17] VITALS: BP 140/82
--- NOTE | 2023-06-06 18:53 | NUR ---
SHIFT SUMMARY PT AWAKE, RESTING QUIETLY DURING SHIFT REPORT. NO C/O AT THAT TIME. MEDICATED FOR NAUSEA DURING THE NIGHT X1. DENIED NAUSEA TO PRESENT TODAY. PT HAD ONE EPISODE OF VOMITING;100cc AT DINNER D/T COUGHING, BUT NOT FROM NAUSEA. PT UP AMBULATING IN AND OUT TO HALLS TODAY. PT RECEIVED 1 UNIT PRBC'S AND IV KCL AGAIN ALL DAY. IV K+ DELAYED D/T BLOOD TRANSFUSION. PT'S TO EARLY AND OFF AND ON THRU OUT THE DAY. NO C/O PAIN. DENIED FURTHER NEEDS AT THIS TIME. CALL LT IN REACH. POSSIBLE D/C TOMORROW. PT HAS CONTINUED TO IMPROVE, FEELING A LITTLE BETTER LAST 2 DAYS.
[2023-06-06 20:13] VITALS: BP 153/81
[2023-06-06] MEDS ORDERED: Lactobacil 2-S.Thermo-Bifido 1 1 Cap PO SCH (21:00)
--- NOTE | 2023-06-07 03:58 | NUR ---
AGRICULTURAL EXTENSION EDUCATOR SUMMARY PULSE RAPID AND BP SLIGHTLY ELEVATED, OTHERWISE VSS. ALERT AND ORINETED X 4. WAS VISITING AT SHIFT COMMENCE, BUT LEFT AT HS. HOB ELEVATED FOR COMFORT. MEDIPORT INFUSING WITH NS AT TKO FOR ANTIBIOTICS - SEE MAR FOR DETAILS. UP WTH ASSIST. USES CALL LIGHT APPROPRIATELY. HAS BEEN RESTING QUIETLY WITH FEW INTERRUPTIONS. PAIN MEDS ADMIN NEEDED - SEE MAR FOR DETAILS. CALL LIGHT IN REACH. RAILS UP X 2 FOR SAFETY. WILL CONTINUE TO MONITOR
[2023-06-07 04:56] VITALS: BP 145/82
[2023-06-07 07:20] VITALS: BP 138/75
[2023-06-07 07:22] LABS: BASOPHILS ABSOLUTE AUTO 0.02 K/mm3 (0.00-0.23); BASOPHILS PERCENT AUTO 0 % (0-2); EOSINOPHILS ABSOLUTE AUTO 0.08 K/mm3 (0.00-0.68); EOSINOPHILS PERCENT AUTO 1 % (0-6); Hematocrit 23.2 % (33.0-51.0); Hemoglobin 7.6 g/dL (11.5-16.0); IMMATURE GRAN ABSOLUTE AUTO 0.08 K/mm3 (0.00-0.10); IMMATURE GRAN PERCENT AUTO 1 % (0-1); LYMPHOCYTES ABSOLUTE AUTO 0.67 K/mm3 (0.84-5.20); LYMPHOCYTES PERCENT AUTO 6 % (21-46); MONOCYTES ABSOLUTE AUTO 1.09 K/mm3 (0.16-1.47); MONOCYTES PERCENT AUTO 10 % (4-13); Mean Corpuscular HGB 28.9 pg (26.0-34.0); Mean Corpuscular HGB Conc 32.8 g/dL (31.5-36.5); Mean Corpuscular Volume 88 fL (80-100); NEUTROPHILS ABSOLUTE AUTO 8.71 K/mm3 (1.96-9.15); NEUTROPHILS PERCENT AUTO 82 % (41-73); Platelet Count 126 K/mm3 (150-400); RDW Coefficient Variation 18.6 % (11.7-14.2); RDW Standard Deviation 57.1 fL (35.1-46.3); Red Blood Cell Count 2.63 M/mm3 (3.80-5.20); White Blood Cell Count 10.65 K/mm3 (4.00-11.30)
[2023-06-07 07:48] LABS: Anion Gap Unable to Calculate mmol/L (6-16); Blood Urea Nitrogen 10 mg/dL (8-24); Bun/Creatinine Ratio 12.7 (12.0-20.0); CO2, Blood 33 mmol/L (21-32); Calcium, Blood 8.7 mg/dL (8.5-10.1); Chloride, Blood 107 mmol/L (98-108); Creatinine, Blood 0.79 mg/dL (0.40-1.00); Glomerular Filtration Rate 83 (60-); Glucose, Blood 118 mg/dL (70-99); Sodium, Blood 139 mmol/L (136-145)
--- NOTE | 2023-06-07 10:36 | NUR ---
Patient Ct contrast reaction. Nurse called by military administrative technician that patient had a reaction from constrast via [employer], porcelain technician noted new hives around the neck. Provider has been called and notified. Antihistamine requested to provider during call with provider.
[2023-06-07] MEDS ORDERED: DiphenhydrAMINE HCl 50 MG/ML 1ML Vial IV PRN (11:00)
[2023-06-07] MEDS ORDERED: Famotidine 10 MG/ML 2ML Vial IV SCH (11:00)
[2023-06-07] MEDS ORDERED: DiphenhydrAMINE HCl 50 MG/ML 1ML Vial IV ONE (11:00)
[2023-06-07] MEDS ORDERED: MethylPREDNISolone Sod Succ 125 MG Vial IV SCH (11:00)
--- NOTE | 2023-06-07 13:49 | NUR ---
Patient is sitting up in bed and alert. Pt's spouse, Jewel is bedside. We spend much time exploring the emotional, mental, spiritual and physical aspects of a senior care soliz with cancer. They share about the practices and people that help them continue to remain positive and able to still really laugh (having 3 deutchens helps them laugh). They share about their sandee and the stabilizing aeffect it on them, They again mention the wonderful support of [facility] that helps them feel loved and cared for in the dark days. I provide therapeutic listening, gentle diet counselor and prayer. They voice that were encourged and uplifted from the spiritual care visit.
[2023-06-07] MEDS ORDERED: MIRALAX17 GM PO (14:32)
[2023-06-07] MEDS ORDERED: SENNA LAXATIVE8.6 MG PO (14:33)
[2023-06-07] MEDS ORDERED: SPIR25 PO (14:35)
== END 2023-06-07 15:51 | disposition home or self-care (01) | DRG 872 ==
LOC: ER 14:59 → MEDS 21:37 → ENPENDDIS 06-07 14:04 → MEDS 06-07 15:51
PROVIDERS: Family Medicine; Internal Medicine; Physician Assistant; Student in an Organized Health Care Education/Training Program; ADMIT Student in an Organized Health Care Education/Training Program
PROC: 3E03329 Introduction of Other Anti-infective into Peripheral Vein, Percutaneous Approach (ICD-10-PCS; 2023-06-03)
PROC: 30233N1 Transfusion of Nonautologous Red Blood Cells into Peripheral Vein, Percutaneous Approach (ICD-10-PCS; principal; 2023-06-06)
DX: A41.51 Sepsis due to Escherichia coli [E. coli] (principal); I82.812 Embolism and thrombosis of superficial veins of left lower extremity; N39.0 Urinary tract infection, site not specified; R18.0 Malignant ascites; J91.0 Malignant pleural effusion; C56.2 Malignant neoplasm of left ovary; R11.2 Nausea with vomiting, unspecified; Z28.21 Immunization not carried out because of patient refusal; Z11.52 Encounter for screening for COVID-19; T45.1X5A Adverse effect of antineoplastic and immunosuppressive drugs, initial encounter; D63.0 Anemia in neoplastic disease; E87.6 Hypokalemia; E83.42 Hypomagnesemia; Z88.2 Allergy status to sulfonamides; Z88.5 Allergy status to narcotic agent; Z88.6 Allergy status to analgesic agent; Z79.899 Other long term (current) drug therapy
CPT/HCPCS: 0202U; 36415; 36430; 74177; 80048; 80053; 81001; 83605; 83735; 84132; 85025; 86850; 86900; 86901; 86923; 87040; 87086; 93005; 93010; 96365; 96366; 96368; 96375; 99285-25; A9270; J0696; J0780; J1200; J1642; J1650; J2405; J2930; J3475; J3480; J7030; J7040; J7050; P9016; P9612; Q9967